=== PATIENT | male | born 1980 | race Caucasian/White ===

== ENCOUNTER 2017-07-07 14:00 | Emergency (ER) | payer BC ==
[~2017-07-07] VITALS: Ht 175.3 cm; Wt 79.4 kg
[~2017-07-07 14:00] MED LIST: PSEUDOEPHEDRINE60 MG PO
--- NOTE | 2017-07-07 18:03 | EKG ---
[facility] [address] [place] [address] Signed Sinus rhythm with occasional premature ventricular complexes Otherwise normal ECG No previous ECGs available Confirmed by MARY JANE HERNANDEZ MD ([id number] on 07/07/2017 6:03:34 PM Electronically Signed By: MARY JANE HERNANDEZ MD 07/07/17 180 PATIENT NAME: EVARISTO HERNANDEZ KINZA Electrocardiogram DATE OF : 80 PHYSICIAN: MARY JANE HERNANDEZ MD REPORT #: [id number] REPORT IS CONFIDENTIAL AND NOT TO BE RELEASED WITHOUT AUTHORIZATION
== END 2017-07-07 15:00 | disposition home or self-care (01) ==
LOC: ED 14:00
DX: R07.89 Other chest pain (principal)
CPT/HCPCS: 93005; 93010; 99284